=== PATIENT | female | born 1975 | race Caucasian/White ===

== ENCOUNTER 2017-09-09 09:07 | Inpatient (IN) | payer OTHER ==
[~2017-09-09] VITALS: Ht 170.2 cm; Wt 58.1 kg
[2017-09-16] MEDS ORDERED: ULTRACET PO (13:19)
[2017-09-16] MEDS ORDERED: INTESTINEX680 M1 PO (13:19)
== END 2017-09-16 13:42 | disposition home or self-care (01) | DRG 331 ==
LOC: ER 09:07 → SURG 21:46 → SEC-K 21:46 → SURG 22:07 → SURH 09-16 13:17
PROVIDERS: Surgery
PROC: BW21YZZ Computerized Tomography (CT Scan) of Abdomen and Pelvis using Other Contrast (ICD-10-PCS; 2017-09-09)
PROC: 3E0336Z Introduction of Nutritional Substance into Peripheral Vein, Percutaneous Approach (ICD-10-PCS; 2017-09-11)
PROC: 0DTB4ZZ Resection of Ileum, Percutaneous Endoscopic Approach (ICD-10-PCS; 2017-09-12)
PROC: 0DTK4ZZ Resection of Ascending Colon, Percutaneous Endoscopic Approach (ICD-10-PCS; principal; 2017-09-12 18:00)
PROC: 3E0F7GC Introduction of Other Therapeutic Substance into Respiratory Tract, Via Natural or Artificial Opening (ICD-10-PCS; 2017-09-13)
DX: K56.690 Other partial intestinal obstruction (principal); E86.0 Dehydration; J45.998 Other asthma; G43.909 Migraine, unspecified, not intractable, without status migrainosus

== ENCOUNTER 2019-01-03 13:45 | Emergency (ER) | payer OTHER ==
[~2019-01-03] VITALS: Ht 172.7 cm; Wt 61.7 kg
[~2019-01-03 13:45] MED LIST: INTESTINEX680 M1 PO; ULTRACET PO
== END 2019-01-03 19:17 | disposition home or self-care (01) ==
LOC: ER 13:45
DX: K29.70 Gastritis, unspecified, without bleeding (principal)

== ENCOUNTER → 2019-07-27 | Outpatient (CLI) | payer OTHER | END | disposition home or self-care (01) | LOC: RAD 13:29 | DX: R05 Cough (principal); J11.1 Influenza due to unidentified influenza virus with other respiratory manifestations ==

== ENCOUNTER 2023-05-23 07:16 | Day surgery (SDC) | payer OTHER | END 2023-05-23 11:20 | disposition home or self-care (01) | LOC: AMB-ENDOS 07:16 | PROVIDERS: ATTEND Surgery | DX: K63.5 Polyp of colon (principal); N80.50 Endometriosis of intestine, unspecified; Z91.013 Allergy to seafood; Z20.822 Contact with and (suspected) exposure to COVID-19; K64.8 Other hemorrhoids ==

== ENCOUNTER 2024-06-08 10:27 | Emergency (ER) | payer OTHER ==
[~2024-06-08] VITALS: Ht 170.2 cm; Wt 65.8 kg
[2024-06-08 13:23] LABS: HEMATOCRIT 38.1 % (36.0-45.00); HEMOGLOBIN 12.9 g/dL (12.0-15.00); MEAN CELL VOLUME 85.7 fL (80.00-100.00); MEAN CORPUSCULAR HEMOGLOBIN 28.9 pg (27.00-32.0); MEAN CORPUSCULAR HGB CONC 33.7 g/dl (32.0-36.0); PLATELET COUNT 237 K/uL (150-450); RED BLOOD COUNT 4.45 M/uL (4.00-6.00); RED CELL DISTRIBUTION WIDTH 14.7 % (11.5-14.5)
[2024-06-08 14:00] LABS: URINE APPEARANCE Clear; URINE BILIRRUBIN Negative (NEGATIVE); URINE BLOOD Negative; URINE COLOR Yellow; URINE GLUCOSE Negative (NEGATIVE); URINE KETONE Negative (NEGATIVE); URINE LEUKOCYTE Negative; URINE NITRATE Negative; URINE PROTEIN Negative (NEGATIVE); URINE UROBILINOGEN 0.2 E.U./dl
[2024-06-08 14:01] LABS: URINE BACTERIA 224.2 uL (0.0-1933); URINE EPITHELIAL CELLS 24.5 uL (0.0-38.8); URINE WBC 9.2 uL (0.0-23.2)
[2024-06-08 14:33] LABS: ALBUMIN 3.3 gm/dL (3.4-5.0); BILIRUBIN TOTAL 0.43 mg/dL (0.3-1.2); CALCIUM 8.4 mg/dL (8.5-10.1); CHOL HDL RATIO 2.2 (0-5.0); CREATININE SERUM 0.71 mg/dL (0.55-1.02); GFR 87.49; GLOBULINA 4.2 G/DL (2.4-3.5); POTASSIUM 4.1 mEq/L (3.5-5.1); TOTAL PROTEIN 7.5 gm/dL (6.4-8.2)
== END 2024-06-08 17:17 | disposition home or self-care (01) ==
LOC: ER 10:29
PROVIDERS: Emergency Medicine
DX: K80.18 Calculus of gallbladder with other cholecystitis without obstruction (principal); Z91.013 Allergy to seafood; K29.70 Gastritis, unspecified, without bleeding

== ENCOUNTER 2024-06-23 09:49 | Outpatient (CLI) | payer OTHER | END 2024-06-23 10:05 | disposition home or self-care (01) | LOC: MAMO-SONO 09:49 | PROVIDERS: ATTEND Obstetrics & Gynecology | DX: N63 Unspecified lump in breast (principal); R10.9 Unspecified abdominal pain; N64.59 Other signs and symptoms in breast; N64.9 Disorder of breast, unspecified; N94.0 Mittelschmerz; R10.2 Pelvic and perineal pain; N94.89 Other specified conditions associated with female genital organs and menstrual cycle ==

== ENCOUNTER 2024-07-17 12:40 | Outpatient (CLI) | payer OTHER ==
[2024-07-20] MEDS ORDERED: XOPENEX HFA15 GM (13:47)
[2024-07-20] MEDS ORDERED: SYMBICORT 16010.2 GM (13:48)
[2024-07-20] MEDS ORDERED: BUDEO.25 (13:48)
[2024-07-20] MEDS ORDERED: RAYOS1 MG (13:49)
== END 2024-07-17 13:23 | disposition home or self-care (01) ==
LOC: RAD 12:40
PROVIDERS: ATTEND Surgery
DX: K56.50 Intestinal adhesions [bands], unspecified as to partial versus complete obstruction (principal); K56.60 Unspecified intestinal obstruction; R14.1 Gas pain; R14.0 Abdominal distension (gaseous); K59.01 Slow transit constipation; N80.50 Endometriosis of intestine, unspecified

== ENCOUNTER → 2024-07-23 | Day surgery (SDC) | payer OTHER ==
[~2024-07-23] MED LIST changes: +BUDEO.25; +CEFOXITIN SODIUM 2,000 MG VIAL IV SCH; +DICY20TA PO; +MEPERIDINE HCL 25 MG/ML AMPUL IV ONE; +PEPCID AC20 MG PO; +RAYOS1 MG; +SUGAMMADEX SODIUM 200 MG/2 ML VIAL IV ONE; +SYMBICORT 16010.2 GM; +TRAM1TAB98 PO; +XOPENEX HFA15 GM; +ZOFRAN8 MG PO
== END | disposition home or self-care (01) ==
LOC: ADM 07-14 12:15 → CIR.AMB 08:00
PROVIDERS: ATTEND Surgery
DX: K80.10 Calculus of gallbladder with chronic cholecystitis without obstruction (principal); Z88.6 Allergy status to analgesic agent; Z91.013 Allergy to seafood; J45.909 Unspecified asthma, uncomplicated; G43.909 Migraine, unspecified, not intractable, without status migrainosus